=== PATIENT | female | born 1970 | race Caucasian/White ===

== ENCOUNTER → 2019-12-14 06:39 | Outpatient (CLI) | payer MEDICAID, SELFPAY ==
--- NOTE | 2019-12-14 06:39 | CA_ITS ---
APPROVED REPORT Supervisor Cell Maintenance: OVIDIO Laterality: Bilateral Study Quality: Adequate Indications: CAD SANDRO HTN HLP Doppler Spectral Velocity Analysis dICA (R) 93.80/38.00 cm/s Gildardo (L) 59.30/23.70 cm/s Gildardo (R) 63.90/25.10 cm/s pICA (L) 62.10/22.10 cm/s pICA (R) 58.50/24.40 cm/s dCCA (L) 89.40/26.50 cm/s dCCA (R) 76.30/25.70 cm/s pCCA (L) 125.80/31.40 cm/s pCCA (R) 80.50/22.30 cm/s Vert (L) 51.30/13.80 cm/s ICA/CCA 1.20 ICA/CCA 0.70 Findings Duplex evaluation demonstrates stenosis of the right proximal internal carotid artery <20% with PSV <140 cm/sec, EDV <100 cm/sec, and IC/CC Ratio <4.0.Duplex evaluation demonstrates stenosis of the left proximal internal carotid artery <20% with PSV <140 cm/sec, EDV <100 cm/sec, and IC/CC Ratio <4.0.Antegrade flow seen bilateral vertebral arteries. Technically difficult study secondary to anatomy Conclusion Duplex evaluation demonstrates stenosis of the right proximal internal carotid artery <20% with PSV <140 cm/sec, EDV <100 cm/sec, and IC/CC Ratio <4.0.Duplex evaluation demonstrates stenosis of the left proximal internal carotid artery <20% with PSV <140 cm/sec, EDV <100 cm/sec, and IC/CC Ratio <4.0.Antegrade flow seen bilateral vertebral arteries. Technically difficult study secondary to anatomy Electronically signed by : Dev Abdi MD 12/14/2019 13:54:42
--- NOTE | 2019-12-14 06:39 | CA_ITS ---
APPROVED REPORT Exam: Pharmacologic Technologist: Paulette Evangelista, Ht: 5 ft 6 in Wt: 222 lbs BSA: 2.09 m2 HR: 77 bpm BP: 143/79 mmHg Rhythm: NSR,RIGHTWARD AXIS Medical History Medical History: HTN, Hyperlipidemia, Diabetic ??? Noninsulin Medications: Omeprazole,,,,, Metoprolol,,,,, Asa,,,,, Ropinirole,,,,, Lipitor,,,,, Losartan/HCTZ,,,,, Hydroxyzine,,,,, ByETTA,,,,, SteGLATRO,,,,, Allergies: BUPROPION Cardiac Risk Factors: HTN, Hyperlipidemia, Diabetes (non-insulin), FHX of CAD, Smoking Stress Test Details Test: LEXISCAN HR Resting HR: 84 bpm Max Heart Rate (APMHR): 169 bpm Max HR Achieved: 111 bpm Target HR (85% APMHR): 143 bpm % of APMHR: 65 Recovery HR: 91 bpm BP Resting BP: 143.0/79.0 mmHg Max BP: 163.0/98.0 mmHg Recovery BP: 124.0/68.0 mmHg ECG Resting ECG: NORMAL SINUS RHYTHM,RIGHTWARD AXIS Clinical Exercise duration: 04:17 min Highest Stage Achieved: Exercise capacity: 1.0 METs Stress ECG Conclusion DURING INFUSION PATIENT HAD SOA,NAUSEA AND MALAISE. NO CHEST PAIN. NO ARRHYTHMIAS/ECTOPY. NO SIGNIFICANT ST-T CHANGES. UNREMARKABLE LEXISCAN STRESS. MYOVIEW IMAGES REPORTED SEPARATELY. Test Summary RECOVERY 03:32 . . 86 . 155/ 84 . . REST 05:39 . . 84 . 143/ 79 . . Stage 1 01:00 . . 94 . . . . Stage 2 01:00 . . 106 . 163/ 98 . . Stage 3 01:00 . . 99 . . . . Stage 4 01:00 . . 94 . 138/ 82 . . Stage 4 01:17 . . 98 . 138/ 82 . Stop exercise at 04:17 RECOVERY 01:00 . . 93 . 124/ 68 . . RECOVERY 02:00 . . 93 . 140/ 86 . . RECOVERY 03:00 . . 84 . 140/ 86 . . RECOVERY 03:32 . . 86 . 155/ 84 . . Electronically signed by : Shan Shetty, 12/14/2019 15:18:36
--- NOTE | 2019-12-14 06:39 | NM_ITS ---
APPROVED REPORT Exam: Nuclear Stress Test Indication: Fatigue, CAD, HTN, DM, High cholesterol, Family history Patient Location: Outpatient Stress Tech: Kalpana Francisconkson [place] Tech:Charlotte Ash, ARRT, RT (R)(N) Ht: 5 ft 6 in Wt: 222 lbs Bra Size: 44D HR: 77 bpm BP: 143/79 mmHg BSA: 2.09 m2 BMI: 35.8 History: Fatigue, CAD, HTN, DM, High cholesterol, Family history Procedure: Patient received a 0.4 mg of intravenous Lexiscan, resting heart rate 77 bpm, resting blood pressure 143/79 mmHg, with Lexiscan maximum heart rate achived was 91 bpm which is Less than 85 % of the maximum predicted heart rate and blood pressure was 124/68 mmHg. With Lexiscan, patient denied any complaint of chest pain. Electrocardiogram Resting electrocardiogram showed sinus rhythm, with Lexiscan there is less than 1.[address] segment depression noted from the baseline EKG. The EKG portion of the Lexiscan is nondiagnostic. Cardiac Stress and Resting SPECT Images: Cardiac Stress and Resting SPECT images were obtained using technetium 99m Myoview 30.9 mCi stress and 10.64 mCi at rest. Gated SPECT for analysis of segmental wall motion and calculation of the ejection fraction also done. Cardiac stress and resting SPECT images show uniform myocardial activity without segmental perfusion abnormality, computer derived ejection fraction is over 65% with no regional wall motion abnormality, right ventricle is normal size and contractility. Conclusion: 1. The EKG portion of the Lexiscan Myoview is nondiagnostic. 2. No scintigraphic evidence of reversible ischemia seen, computer derived ejection fraction is over 65% with no regional wall motion abnormality, right ventricle is normal size and contractility. 3. Normal Lexiscan Myoview study. Electronically signed by : Shan Shetty, 12/14/2019 15:22:19
--- NOTE | 2019-12-14 08:34 | HMH.ITSHM ---
Current Home Medications as stated by this patient Huyen Martinez or medical billing representative. []ROPINIROLE OMEPRAZOLE METOPROLOL LOSARTAN HYDROXYZINE ERTUGLIFLOZIN ATORVASTATIN ASA
== END ==
PROVIDERS: PCP Family Medicine; Visit Provider Internal Medicine Cardiovascular Disease
DX: I25.10 Atherosclerotic heart disease of native coronary artery without angina pectoris (principal); I25.2 Old myocardial infarction; I65.23 Occlusion and stenosis of bilateral carotid arteries; E11.9 Type 2 diabetes mellitus without complications; E78.5 Hyperlipidemia, unspecified; I10 Essential (primary) hypertension; G47.33 Obstructive sleep apnea (adult) (pediatric); Z87.891 Personal history of nicotine dependence; Z95.5 Presence of coronary angioplasty implant and graft
CPT/HCPCS: 78452; 93017; 93880; A9502; J2785

== ENCOUNTER → 2020-02-26 10:00 | Outpatient (CLI) | payer MEDICAID, SELFPAY ==
[2020-02-26 11:43] LABS: Anion Gap 14.9 mEq/L (5-15); Blood Urea Nitrogen 18 mg/dl (7-17); Calcium 9.9 mg/dl (8.4-10.2); Carbon Dioxide 27 mmol/L (22.0-30.0); Chloride 97 mmol/L (98-107); Estimated Glomerular Filt Rate 76 ml/min (>60); GFR (African American) 92 ML/MIN (>60); Potassium 4.9 mmoL/L (3.5-5.1); Sodium 134 mmol/L (136-145)
[2020-02-26 11:46] LABS: Glucose 415 mg/dl (74-100)
== END ==
PROVIDERS: Visit Provider Physician Assistant
DX: Z51.81 Encounter for therapeutic drug level monitoring (principal); Z79.899 Other long term (current) drug therapy
CPT/HCPCS: 36415; 80048

== ENCOUNTER → 2020-04-17 16:04 | Outpatient (CLI) | payer MEDICAID, SELFPAY ==
[2020-04-17 16:34] LABS: Basophils # 0.1 K/mm3 (0-0.2); Basophils % 0.8 % (0.1-2.0); Eosinophils # 0.1 K/mm3 (0.0-0.4); Hematocrit 47.6 % (37.0-47.0); Hemoglobin 14.9 g/dL (12.2-16.2); Lymphocytes # 3.6 K/mm3 (0.7-4.5); Lymphocytes % 25.3 % (10-50); Mean Corpuscular HGB Conc 31.2 g/dL (31.8-35.4); Mean Corpuscular Hemoglobin 27.1 pg (27.0-31.2); Mean Corpuscular Volume 86.8 fl (81-99); Monocytes # 0.4 K/mm3 (0.1-1.0); Monocytes % 3.1 % (1.7-9.3); Neutrophils # 9.8 K/mm3 (1.8-7.8); Neutrophils % 69.8 % (37.0-80.0); Platelet Count 300 K/mm3 (142-424); Red Blood Count 5.49 M/mm3 (4.20-5.40); Red Cell Distribution Width 14.7 % (11.5-17.5); White Blood Count 14.1 K/mm3 (4.8-10.8)
[2020-04-17 18:54] LABS: Alanine Aminotransferase 35 U/L (12-78); Albumin Level 4.7 g/dl (3.5-5.0); Albumin/Globulin Ratio 1.4 (1.1-1.8); Alkaline Phosphatase 158 U/L (38-126); Anion Gap 17.4 mEq/L (5-15); Aspartate Amino Transferase 50 U/L (14-36); Bilirubin,Total 0.6 mg/dl (0.2-1.3); Blood Urea Nitrogen 14 mg/dl (7-17); Calcium 10.4 mg/dl (8.4-10.2); Carbon Dioxide 25 mmol/L (22.0-30.0); Chloride 104 mmol/L (98-107); Estimated Glomerular Filt Rate 66 ml/min (>60); GFR (African American) 80 ML/MIN (>60); Globulin 3.4 g/dL (1.3-3.2); Glucose 234 mg/dl (74-100); Magnesium 1.7 mg/dl (1.6-2.3); Potassium 4.4 mmoL/L (3.5-5.1); Sodium 142 mmol/L (136-145); Total Protein,Serum 8.1 g/dl (6.3-8.2)
[2020-04-17 19:04] LABS: Hemoglobin A1C 10.9 % (4.0-6.0)
[2020-04-17 19:11] LABS: 25-OH Vitamin D, Total 23.9 ng/mL (30-100)
[2020-04-17 19:24] LABS: Thyroid Stimulating Hormone 0.69 uIU/mL (0.465-4.68)
[2020-04-17 19:42] LABS: Vitamin B12 388 pg/mL (239-931)
[2020-04-17 20:26] LABS: Ferritin 67.5 ng/ml (11.1-264)
== END ==
PROVIDERS: Visit Provider Internal Medicine Adolescent Medicine
DX: E11.69 Type 2 diabetes mellitus with other specified complication (principal); E55.9 Vitamin D deficiency, unspecified; G80.9 Cerebral palsy, unspecified; G25.81 Restless legs syndrome
CPT/HCPCS: 36415; 80053; 82306; 82607; 82728; 83036; 83735; 84443; 85025

== ENCOUNTER → 2020-11-22 16:32 | Outpatient (CLI) | payer MEDICAID, SELFPAY ==
--- NOTE | 2020-11-22 16:37 | MR_ITS ---
PROCEDURE INFORMATION: Exam: MR Cervical Spine Without Contrast Exam date and time: 11/22/2020 4:37 PM Age: 50 years old Clinical indication: Cervicalgia and neck pain; Patient HX: Neck pain that radiates down left arm without injury or trauma. TECHNIQUE: Imaging protocol: Multiplanar magnetic resonance images of the cervical spine without contrast. COMPARISON: US CA CAROTID DUPLEX BI 12/14/2019 7:07 AM FINDINGS: Vertebrae: Trace 1 mm of degenerative retrolisthesis of C3 on C4 and C4 on C5. Mild levoconvex scoliosis. No acute fracture seen. Spinal cord: Normal signal. There is disc desiccation throughout. Disc height and spondylosis is moderate at C5-C6 and C6-C7, [id number] at C4-C5 endplate inflammation at C6-C7 is likely degenerative. C2-C3: Mild ligamentum flavum buckling. No stenoses. C3-C4: Slight retrolisthesis. Mild disc bulge and ligamentum flavum buckling. Central spinal canal stenosis is mild. Uncovertebral and facet arthropathy causing mild bilateral neural foraminal stenoses. C4-C5: Slight retrolisthesis. Diffuse disc osteophyte complex and ligamentum flavum buckling. A caudally migrating central disc extrusion measures approximately 3 mm in AP dimension and extends 4 mm below disc space. Central spinal canal stenosis is severe. There is mild cord flattening without cord myelopathy. Uncovertebral and to a lesser extent facet arthropathy causing severe bilateral neural foraminal stenoses. C5-C6: Disc osteophyte and ligamentum flavum buckling causing severe central spinal canal stenosis. There is mild cord flattening without cord myelopathy. Uncovertebral and to a lesser extent facet arthropathy causing severe bilateral neural foraminal stenoses. C6-C7: Disc osteophyte complex and ligamentum flavum buckling causing moderate central spinal canal stenosis. Uncovertebral and to a lesser extent facet arthropathy causing severe right and moderate left neural foraminal stenoses. C7-T1: Subtle central disc protrusion does not contribute to central spinal canal stenosis. The neural foramina are patent. Soft tissues: Unremarkable. IMPRESSION: 1. Severe central spinal canal and neural foraminal stenoses at C4-C5 and C5-C6. 2. Moderate central spinal canal stenosis at C6-C7. Severe right and moderate left neural foraminal stenoses.
== END ==
PROVIDERS: PCP Internal Medicine Adolescent Medicine; Visit Provider Internal Medicine Adolescent Medicine
DX: M54.12 Radiculopathy, cervical region (principal)
CPT/HCPCS: 72141; 76376

== ENCOUNTER 2023-10-07 14:43 | Outpatient (CLI) | payer MEDICAID, SELFPAY ==
--- NOTE | 2023-10-07 | MR_ITS ---
FINAL REPORT CLINICAL HISTORY: NECK PAIN COMPARISON: None FINDINGS: Multiplanar MR imaging of the cervical spine was performed without contrast. On the sagittal T2-weighted images, disc degeneration is seen at multiple levels. The patient has undergone prior anterior cervical fusion from C4-C7. There is no evidence of fracture. There is mild retrolisthesis of C3 on C4. The cervical spinal cord has an unremarkable appearance without evidence of mass, edema or syrinx. The cervicomedullary junction is normal. C2-3: There is no significant canal stenosis or neural foraminal narrowing. C3-4: An annular bulge is present with a left foraminal disc protrusion producing left C4 nerve root impingement. There is mild right and severe left neuroforaminal narrowing, with mild canal stenosis, and AP canal diameter of 9 mm. C4-5: The patient has undergone fusion at this level. There is mild right neural foraminal narrowing. C5-6: The patient has undergone fusion at this level. There is mild bilateral neural foraminal narrowing. C6-7: The patient has undergone fusion at this level and there is mild left neural foraminal narrowing. C7-T1: An annular bulge is present. There is no significant canal stenosis or neural foraminal narrowing. T1-2: There is no significant canal stenosis or neural foraminal narrowing. IMPRESSION: Prior anterior cervical fusion from C4-C7. At the C3-4 level there is left C4 nerve root impingement, with severe left neuroforaminal narrowing and mild canal stenosis with an AP canal diameter of 9 mm. Reviewed, Interpreted and Dictated by Rishi Roberts III, MD Transcribed by Stephanie Vanegas Authenticated and [facility]
== END 2023-10-07 23:59 | disposition home or self-care (01) ==
LOC: RAD 14:43
PROVIDERS: PCP Internal Medicine Adolescent Medicine; Visit Provider Nurse Practitioner Critical Care Medicine
DX: M47.816 Spondylosis without myelopathy or radiculopathy, lumbar region (principal); G95.9 Disease of spinal cord, unspecified; M54.2 Cervicalgia; M89.49 Other hypertrophic osteoarthropathy, multiple sites
CPT/HCPCS: 72141